=== PATIENT | male | born 1990 | race Caucasian/White ===

== ENCOUNTER 2021-10-14 07:59 | Day surgery (SDC) | payer OTHER ==
[2021-10-14] VITALS (10 sets, daily range): BP systolic 114–161; BP diastolic 53–99
[~2021-10-14] VITALS: Ht 177.8 cm; Wt 80.0 kg
--- NOTE | 2021-10-14 07:30 | NUR ---
PATIENT TO ROOM 281 AMBULATORY. ADMISSION ASSESSMENT COMPLETED AT THIS TIME. CONSENT OBTAINED. DR SMITH NOTIFIED. NEW ORDERS RECEIVED. IV ESTABLISHED. LABS SENT FOR REFERENCE. ORIENTED PATIENT TO ROOM AND UNIT. CALL LIGHT IN REACH. WILL CONTINUE TO MONITOR.
[2021-10-14 08:36] LABS: HEMATOCRIT 38.7 % (39.0-50.0); HEMOGLOBIN 13.1 g/dl (14.0-18.0); IMMATURE GRANULOCYTES 0.1 % (0.0-5.0); MEAN CELL VOLUME 90.4 fL CALC (80.0-100.0); MEAN CORPUSCULAR HGB 30.6 pG CALC (26.0-32.0); MEAN CORPUSCULAR HGB CONC 33.9 g/dL CAL (32.0-36.0); NEUT# 4.62 thou/uL (1.82-7.42); RED BLOOD COUNT 4.28 mill/uL (4.70-6.10); RED CELL DISTRI WIDTH 13.4 % (11.5-15.5)
[2021-10-14 08:56] LABS: ALBUMIN 3.8 g/dL (3.2-5.0); ALKALINE PHOSPHATASE 48 u/l (38-126); ANION GAP 13 (6-22 (CALC)); BILIRUBIN, TOTAL 0.4 mg/dL (0.0-1.4); BUN 12 mg/dL (9-20); BUN/CREATININE RATIO 10 (12-20 (CALC)); CARBON DIOXIDE 26 mmol/l (22-30); CHLORIDE 105 mmol/l (95-108); CREATININE 1.2 mg/dL (0.7-1.3); GFR > 60 ML/MIN (>=60 (CALC)); GFR FOR AFR.AMER. > 60 ML/MIN (>=60 (CALC)); POTASSIUM 4.1 mmol/l (3.5-5.1); SGOT/AST 29 u/l (17-59); SODIUM 140 mmol/l (137-146); TOTAL PROTEIN 7.1 g/dL (6.3-8.2)
[2021-10-14] MEDS ORDERED: VITAMIN D32000 UNI2 (12:18)
[2021-10-14] MEDS ORDERED: B COMPLE2 PO (12:19)
[2021-10-14] MEDS ORDERED: PRILOSEC OTC20 MG PO (12:19)
[2021-10-14] MEDS ORDERED: CLONIDINE0.1 MG PO (14:06)
[2021-10-14] MEDS ORDERED: NALTREXONE50 MG PO (14:07)
[2021-10-14] MEDS ORDERED: KLONOPIN0.5 MG PO (14:48)
--- NOTE | 2021-10-14 15:57 | NUR ---
PT ARRIVED VIA STRECTHER WITH GUERLINE BERNARDO AT THIS TIME. PT SLEEPING. BREATHING EVEN AND UNLABORED. BED ALARM ON. FALL/SAFTEY PRECAUTION IN PLACE. CALL LIGHT IS WITHIN REACH.
--- NOTE | 2021-10-14 19:00 | NUR ---
RECIEVED REPORT FROM GUERLINE GOINS
--- NOTE | 2021-10-14 20:11 | NUR ---
PT RESTING IN LOW FOWLERS POSITION. PT IS A/OX1 AND DROWSY. ASESSMENT COMPLETED. RESPIRATIONS ARE EVEN AND UNLABORED WITH NO DISTRESS NOTED. LUNG SOUNDS CLEAR. HEART RHYTHM NORMAL. BOWEL SOUNDS ACTIVE, BM X2 REPORTED BY AID. #18G LH FLUSHED, SITE APPEARS HEALTHY AND PATENT.#20G RAC DISLODGED WITH CATH STILL INTACT. PULSES STRONG. PT REQUESTING SOMETHING TO ASSIST TO SLEEP.PT TO BE MEDICATED PER EMAR. ALL SAFTEY PRECAUTIONS ARE IN PLACE WITH CALL LIGHT IN REACH. BED ALARM ACTIVE. CONTINUE TO MONITOR
--- NOTE | 2021-10-14 22:19 | NUR ---
PT RESTLESS, ASKIN FOR SOMETHING TO HELP SLEEP. SCHEDULED MEDICATIONS ADMINISTERED.
--- NOTE | 2021-10-14 23:04 | NUR ---
PT INFORMS PT OD PAIN. WHEN ASKED WHAT KIND OF PAIN, PT STATES "BACK PAIN". PT INFORMEED OF PAIN MEDICATIONS NOT BEING AVALIBLE CONSDERING IT BEING THE ANR PROGRAM. PT STATES HE IS UNABLE TO GET COMFORTABLE AND SLEEP. PT MEDICATED WITH ATIVAN PER EMAR. VVS. ALL SAFTEY PRECAUTIONS IN PLACE WITH CALL LIGHT IN REACH. BED ALARM ACTIVE
--- NOTE | 2021-10-15 00:10 | NUR ---
PT SLEEPING IN LOW FOWLERS POSITION. RESPIRATIONS EVEN AND UNLABORED. #18G LH REMAINS IN PLACE. NO SIGNS OF ANY DISTRESS. ALL SAFTEY PRECAUTIONS IN PLACE. BED ALARM ACTIVE.
--- NOTE | 2021-10-15 03:58 | NUR ---
BED ALARM SET OFF. PT FOUND USING BATHROOM. PT IS A/OX2 BUT DROWSY. PT ASSISTED BACK INTO BED. WATER PROVIDED PER PT REQUEST. TOLERATED WELL. SCHEDULED MEDICATIONS ADMINISTERED. #18G LH REMAINS IN PLACE. PT DENIES OF ANY ADDITIONAL NEEDS. ALL SAFTEY PRECAUTIONS ARE IN PLACE WITH CALL LIGHT IN REACH. BED ALARM ACTIVE.
[2021-10-15 04:00] VITALS: BP 120/50
[2021-10-15 05:11] LABS: HEMATOCRIT 39.6 % (39.0-50.0); HEMOGLOBIN 13.7 g/dl (14.0-18.0); IMMATURE GRANULOCYTES 0.2 % (0.0-5.0); MEAN CORPUSCULAR HGB 30.4 pG CALC (26.0-32.0); MEAN CORPUSCULAR HGB CONC 34.6 g/dL CAL (32.0-36.0); NEUT# 16.71 thou/uL (1.82-7.42); RED BLOOD COUNT 4.5 mill/uL (4.70-6.10); RED CELL DISTRI WIDTH 13.1 % (11.5-15.5)
[2021-10-15 05:18] LABS: ALBUMIN 4.3 g/dL (3.2-5.0); ALKALINE PHOSPHATASE 51 u/l (38-126); BUN 13 mg/dL (9-20); BUN/CREATININE RATIO 12 (12-20 (CALC)); CHLORIDE 111 mmol/l (95-108); GFR > 60 ML/MIN (>=60 (CALC)); GFR FOR AFR.AMER. > 60 ML/MIN (>=60 (CALC)); MAGNESIUM 2.2 mg/dL (1.6-2.3); POTASSIUM 3.8 mmol/l (3.5-5.1); SGOT/AST 26 u/l (17-59); SODIUM 144 mmol/l (137-146); TOTAL PROTEIN 7.8 g/dL (6.3-8.2)
[2021-10-15 05:20] LABS: ANION GAP 18 (6-22 (CALC)); BILIRUBIN, TOTAL 0.9 mg/dL (0.0-1.4); CARBON DIOXIDE 19 mmol/l (22-30)
[2021-10-15 07:53] VITALS: BP 123/61
[2021-10-15 08:00] VITALS: BP 123/61
--- NOTE | 2021-10-15 10:43 | NUR ---
PATIENT RESTING IN BED. BED ALARM ON. VITAL SIGNS STABLES AT THIS TIME.
[2021-10-15 11:36] VITALS: BP 107/55
[2021-10-15 15:17] VITALS: BP 145/70
--- NOTE | 2021-10-15 15:24 | NUR ---
patient stable is discharge
== END 2021-10-15 15:15 | disposition home or self-care (01) | DRG 897 ==
LOC: ANR 07:59 → MS2 08:01 → ANR 15:22
PROVIDERS: ATTEND Anesthesiology
DX: F11.20 Opioid dependence, uncomplicated (principal)
CPT/HCPCS: J2060; J2354; J3475